=== PATIENT | female | born 1950 | race Asian ===

== ENCOUNTER → 2022-01-13 | Outpatient (CLI) | payer MEDICARE, OTHER ==
--- NOTE | 2022-01-13 18:06 | Diagnostic Imaging Report ---
INDICATION: Pain COMPARISON: None available TECHNIQUE: Four radiographs of the right knee are obtained dated 01/13/2022 FINDINGS: No acute fracture or dislocation. No destructive osseous process. Mild medial and lateral joint space narrowing with mild tricompartmental osteophytosis. Mild narrowing of the medial and lateral patellofemoral joints. Tiny knee joint effusion. No suspicious radiopaque foreign body. Left total knee arthroplasty is partially incidentally visualized. IMPRESSION: No acute osseous abnormality with mild degenerative changes and a tiny knee joint effusion present. Dictated by: Dictated on workstation # [id number]
== END ==
LOC: ORTHO 10:22
PROVIDERS: ATTEND Orthopaedic Surgery
DX: M17.11 Unilateral primary osteoarthritis, right knee (principal)
CPT/HCPCS: 20610; 73564

== ENCOUNTER → 2022-12-23 | Outpatient (CLI) | payer MEDICARE, OTHER | LOC: ORTHO 10:51 | PROVIDERS: ATTEND Orthopaedic Surgery | DX: M17.11 Unilateral primary osteoarthritis, right knee (principal) | CPT/HCPCS: 20610 ==